=== PATIENT | male | born 2000 | race Hispanic/Latino ===

== ENCOUNTER 2024-09-11 10:36 | Emergency (ER) | payer SELFPAY ==
[~2024-09-11] VITALS: Ht 172.7 cm; Wt 87.5 kg
[2024-09-11 10:37] VITALS: TEMP 98
[2024-09-11] MEDS: morPHINE 2 MG SYG IVP ONE (11:11)
[2024-09-11] MEDS: teTANUS/diphthERIA TOXOID [ADULT] 0.5 ML VIAL IM ONE (11:54)
[2024-09-11] MEDS: OCTYL 2-CYANOACRYLATE 1 EACH TP ONE (13:44)
[2024-09-11] MEDS: LIDOCAINE HCL 1% 20 ML VIAL ONE (13:45)
[2024-09-11] MEDS: cefTRIAXone 1G VIAL IM ONE (14:08)
[2024-09-11 14:28] VITALS: BP 126/87; PULSE 60; RESP 16; O2SAT 98
== END 2024-09-11 14:45 | disposition home or self-care (01) ==
LOC: EDH 10:36
DX: S61.213A Laceration without foreign body of left middle finger without damage to nail, initial encounter (principal); W27.0XXA Contact with workbench tool, initial encounter; Y93.89 Activity, other specified; Y92.89 Other specified places as the place of occurrence of the external cause; Y99.8 Other external cause status
CPT/HCPCS: 99284; 12042; 96374; 90714; 73140; 90471; 96372; J2270; J0696; 12041